=== PATIENT | female | born 1995 | race Caucasian/White ===

== ENCOUNTER 2022-05-19 07:56 | Outpatient (REF) | payer OTHER, SELFPAY ==
[2022-05-19 11:43] LABS: Hematocrit 41.8 % (37.0-47.0); Mean Corpuscular HGB Conc 33.5 g/dl (31.0-35.0); Mean Corpuscular Hemoglobin 27.9 pg (27.0-33.0); Mean Corpuscular Volume 83.4 fL (80.0-98.0); Mean Platelet Volume 10.3 fL (9.4-12.3); Platelet Count 332 X10*3/uL (160-400); Red Blood Count 5.01 X10*6/uL (4.20-5.50); Red Cell Distribution Width 12.7 % (11.0-16.0); White Blood Count 7.1 X10*3/uL (4.8-10.8)
[2022-05-19 12:07] LABS: Alanine Aminotransferase 16 U/L (0-31); Albumin Level 4.2 g/dL (3.5-5.0); Alkaline Phosphatase 58 U/L (39-117); Anion Gap 15 (12-20); Aspartate Amino Transferase 14 U/L (5-31); Bilirubin Total 0.5 mg/dL (0.0-1.0); Blood Urea Nitrogen 12 mg/dL (9-16); Calcium 9.1 mg/dL (8.4-10.2); Carbon Dioxide 24 mmol/L (22-29); Chloride 107 mmol/L (96-108); Cholesterol 152 mg/dL; Estimated Glomerular Filt Rate > 60; Glucose Fasting 90 mg/dL (60-99); HDL Cholesterol 53 mg/dL; LDL Cholesterol Calculated 87 mg/dl; Potassium 4.2 mmol/L (3.3-5.1); Sodium 142 mmol/L (135-145); Total Protein 6.9 g/dL (6.5-8.0); Triglycerides 63 mg/dL
[2022-05-19 12:30] LABS: TSH reflex Free T4 2.08 uIU/mL (0.32-4.0)
== END 2022-05-19 07:57 | disposition home or self-care (01) ==
LOC: HO.HMGCLDS 07:56
PROVIDERS: PCP Hospitalist; Visit Provider Hospitalist
DX: Z00.00 Encounter for general adult medical examination without abnormal findings (principal)
CPT/HCPCS: 36415; 80053; 80061; 84443; 85027

== ENCOUNTER 2022-06-11 08:52 | Outpatient (REF) | payer OTHER, SELFPAY ==
[2022-06-14 15:31] LABS: TS Negative Control Passed; TS Panel A 0; TS Panel B 0; TS Positive Control Passed; TSpotTB Negative (Negative)
== END 2022-06-11 08:53 | disposition home or self-care (01) ==
LOC: HO.WFDLDS 08:52
PROVIDERS: Visit Provider Hospitalist
DX: Z02.0 Encounter for examination for admission to educational institution (principal)
CPT/HCPCS: 36415; 86481; 86735; 86762; 86765; 86787

== ENCOUNTER 2023-02-18 15:54 | Outpatient (AMB) | payer BC, SELFPAY ==
[2023-02-18 16:00] VITALS: BP 122/68; PULSE 97; RESP 12; TEMP 36.8; O2SAT 99; BMI 29.4
--- NOTE | 2023-02-18 16:00 | A.OFFPC_ITS ---
Vital Signs 02/18/23 16:00 Height 5 ft 4 in Weight 171 lb 8 oz BMI 29.4 BP 122/68 Blood Pressure Location Rt brachial Position Sitting Respiration 12 Pulse 97 Pulse Source Pulse Oximeter Temp 98.2 F Temp Source Temporal Artery Scan Pulse Oximetry (%) 99 Oxygen Delivery Method Room Air Intake Visit Reasons: headaches Intake Note: Patient states that she was weed wacking and states that a rock flew deep in her nose and hasnt seen it since. Patient states it went up her nose 4 days ago. Benny soria states since then shes had a migraine for about 5 days. Patient would like a refill on the sumatriptan and ibuprofen. Patient would like a CAT scan done to see if anything is going on. Poiser Required: No Accompanied by: Self / Same As Patient Allergies No Known Allergies Allergy (Verified 02/18/23 16:25) Medication List - Last Reconciled 02/18/23 by Rowena Song CNP ibuprofen 600 mg PO Q8H PRN sumatriptan succinate take 1 tab at onset of headache; if no relief may repeat 1 tab after at least 2 hrs; max = 4 tabs/24 hr PO Tobacco use date assessed: 10/30/22 Dental Screening Dental Screen Date: 02/18/23 Did you have a dental visit in the last 12 months?: Yes Did you have a dental problem in the last 6 months where you did not have access to dental care?: No Was dental information given to patient?: Patient has dentist HPI HPI Comments History of Present Illness Details 27-year-old female presents with complaints of headache. She reports history of headache which worsened after a rock went into her left nostril while whacking 4 days ago. The pain is usually localized around the middle of her head. She describes the pain as throbbing and refractory to ibuprofen and Excedrin. No dizziness or visual disturbances. No nausea or vomiting. She was evaluated for headache in October 2022 and was prescribed sumatriptan. Visual acuity test was normal. She was referred to Ophthalmology. She states she never followed up with opthlamology because she was busy with school. 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 Allen Bello, Jennifer Encarnacion, Daniel Martin and colleagues, with an educational bessie from [employer]. Review of Systems Const Details: Const Denies chills, Denies fatigue, Denies fever(s), Reports headache(s) and Denies weakness ENT Reports as per HPI Card Denies chest pain, Denies lightheadedness, Denies dyspnea and Denies other (Palpitations) Resp Denies cough, Denies dyspnea, Denies wheezing and Denies other ( shortness of breath) GI Denies abdominal pain, Denies melena, Denies hematochezia, Denies change in bowel habits, Denies dyspepsia and Denies nausea Denies hematuria and Denies dysuria Musc Denies abnormal gait, Denies myalgias, Denies arthralgias, Denies numbness and Denies tingling Skin/Breast Denies rash, Denies unusual bruising and Denies wounds Neuro Denies abnormal gait, Denies dizziness, Reports headache(s), Denies memory loss, Denies numbness, Denies Sensory deficit (Neuro), Denies tingling and Denies weakness Psych Denies anxiety and Denies depression Endo Denies fatigue Aller/Immun Denies wheezing Physical exam (Primary Care) Vital Signs: Last Vital Signs Temp 98.2 F 02/18/23 16:00 Pulse 97 02/18/23 16:00 Resp 12 02/18/23 16:00 BP 122/68 02/18/23 16:00 Pulse Ox 99 02/18/23 16:00 Oxygen Delivery Method Room Air 02/18/23 16:00 BMI result Body Mass Index 29.4 Tobacco/Smoking Status: Tobacco use Status Tobacco use date assessed 10/30/22 02/18/23 16:13 Patient Tobacco Use Status Never used Tobacco 02/18/23 16:13 e-Cigarette/Vaping Use Never Used 02/18/23 16:13 Thrive Assessment: Date of Thrive Assessment Date Thrive assessed 06/11/22 02/18/23 16:13 Const Other: General: no acute distress and well developed Nutritional Appearance: well nourished Orientation/consciousness: patient oriented x3 HENMT Head is normocephalic Bilateral ear canal and TM are normal Nasal turbinates and oropharynx are pink and moist Sinuses are nontender with palpation No auricular or cervical lymphadenopathy Eyes General: appearance normal, both eyes and all related structures Pupils: Equal, round and reactive pupils present EOM: EOMs intact bilaterally Resp Effort & Inspection: normal respiratory effort Auscultation: clear to auscultation bilaterally Cardio Rate: regular rate Rhythm: regular rhythm Heart sounds: S1 normal heart sound present, S2 normal heart sound present, no gallops, no murmurs and no rubs GI Palpation (GI): No Abdominal aortic bruit present, Soft to palpation, nontender, No hepatosplenomegaly present and No Rebound tenderness present Auscultation: normal bowel sounds General: Yes no CVA tenderness Back/Spine/Pelvis Back: no CVA tenderness Cervical Spine: cervical ROM normal and No Cervical spine tenderness Thoracic/Lumbar Spine: thoraco-lumbar ROM normal, No pain with thoraco-lumbar ROM, No thoracic spinal tenderness and No lumbar spinal tenderness Extrem General: Yes normal to inspection, No edema and No calf tenderness Skin General: warm and dry. Normal skin color. Normal skin turgor Lesions: no lesions Rashes: no rashes Trauma: no lacerations or abrasions Wounds: no wounds Nails: normal Neuro General: patient oriented x3, gait normal and no focal neuro deficit Cranial nerves: Yes Equal, round and reactive pupils present Cognition (Neuro): normal cognition Gait exam (Neuro): Normal gait present Motor exam (neuro): 5/5 motor strength present throughout Sensory Exam: No Sensory deficit (Neuro) Psych Affect: normal affect Assessment and Plan Assessment & Plan (1) Headache: Code(s): R51.9 - Headache, unspecified Plan: Likely migraines or tension headaches Magnesium oxide and riboflavin as prescribed Labs ordered Adequate hydration and routine exercise encouraged Referred to neurology Follow-up with PCP in 2 months for complete physical exam return sooner with worsening or new symptoms Verbalized understanding and agreed with treatment plan. Orders: Orders Complete Blood Count no Diff Today R51.9 - Headache, unspecified Basic Metabolic Panel Today R51.9 - Headache, unspecified Referrals Neurology Referral R51.9 - Headache, unspecified Medications: New magnesium oxide 400 mg PO DAILY 30 days 30 caps 0RF riboflavin (vitamin B2) 400 mg PO DAILY 30 days 30 tabs 0RF Discontinued sumatriptan succinate Discontinued Reason: Patient no longer taking take 1 tab at onset of headache; if no relief may repeat 1 tab after at least 2 hrs; max = 4 tabs/24 hr PO 30 tabs 1RF Coding Level of Care Code Est Pt Level 3 (25609) Diagnoses Headache R51.9 Time Spent (min) 25
== END 2023-02-18 16:47 | disposition home or self-care (01) ==
PROVIDERS: PCP Hospitalist; Visit Provider Nurse Practitioner Family
DX: R51.9 Headache, unspecified (principal)
CPT/HCPCS: 99213

== ENCOUNTER 2023-11-26 10:30 | Outpatient (AMB) | payer BC, SELFPAY ==
--- NOTE | 2023-11-26 10:34 | MHC.PC.OV ---
Vital Signs 11/26/23 10:35 Height 5 ft 4 in Weight 177 lb 4 oz BMI 30.4 BP 114/74 Blood Pressure Location Rt brachial Position Sitting Respiration 13 Pulse 89 Pulse Source Pulse Oximeter Temp 98 F Temp Source Temporal Artery Scan Pulse Oximetry (%) 99 Oxygen Delivery Method Room Air Intake Visit Reasons: f/u heart issues Emergency Room Orderly Required: No Accompanied by: Self / Same As Patient Allergies No Known Allergies Allergy (Verified 11/26/23 10:42) Tobacco use date assessed: 11/26/23 Dental Screening Dental Screen Date: 11/26/23 Did you have a dental visit in the last 12 months?: Yes Did you have a dental problem in the last 6 months where you did not have access to dental care?: No Was dental information given to patient?: Patient has dentist HPI HPI Comments History of Present Illness Details 28-year-old female presents with complaints of intermittent chest pain shooting, burning, and heavy chest pain to her sternum and left and right chest for the past 1 week. She also reports intermittent palpitations for the past 1 month. No aggravating or alleviating factors. No jaw, neck, or jaw pain. She was evaluated a [facility] 3 days ago; xray, EKG, and labs were unrevealing. She notes that she was advised to f/u with cardiology for monitory with a holter monitor. [facility] ED record on 11/23/2023 reviewed. Chest x-ray and EKG were unremarkable. D-dimer was negative. CBC and BMP was normal. Physical exam was normal. She notes that she has been consuming lots of caffeine, including energy drinks and coffee for the past 6 years. She has been consuming between 500-700mg of caffeine daily but recently reduced to 200 mg daily. She is currently experiencing shooting pain and heaviness to her sternum. She reports associated shortness of breath and fatigue. She notes that I am not anxious more than usual. However, she declines MILLER-7 and PHQ-9 screening. [facility] Medical History (Updated 11/26/23 @ 11:30 by Rowena Song CNP) No pertinent past medical history Surgical History (Updated 02/18/23 @ 16:19 by MARCUS Bach) No pertinent past surgical history Family History (Updated 11/26/23 @ 10:45 by MARCUS Bach) Mother No family history of mental disorder Hypothyroidism Father No family history of mental disorder Diabetes Maternal Grandmother Kenmare's disease Paternal Grandmother Alzheimer disease Maternal Grandfather Liver cancer Paternal Grandfather Cancer Social History Household Members: Family Both parents involved: No Caregiver staying overnight: No Housing: House (parents) Are you a primary manager urgent care to a significant other at home: No Do you presently have visiting nurse or other home services: No 75 years or older and lives alone: No Alcohol intake: current Alcohol intake frequency: holidays/special occasions only Alcohol type: other Patient Tobacco Use Status: Never used Tobacco e-Cigarette/Vaping Use: Never Used service: No Current occupational status: employed Current occupation: [employer] Cognitive needs: No Hearing needs: No Vision needs: No Questionnaire Thrive Questionnaire Date Thrive assessed: 06/11/22 MILLER-7 AMB Questionnaire MILLER-7 Date MILLER - 7 assessed: 06/11/22 Source: Developed by Drs. Allen Bello, Jennifer Encarnacion, Daniel Martin and colleagues, with an educational bessie from [employer]. Review of Systems Const Details: Const Denies chills, Reports fatigue, Denies fever(s), Denies headache(s) and Denies weakness ENT Denies dizziness and Denies headache(s) Card Reports chest pain, Denies lightheadedness, Denies dyspnea and Denies other (Palpitations) Resp Reports SOB, Denies cough, and Denies wheezing GI Denies abdominal pain, Denies melena, Denies hematochezia, Denies change in bowel habits, Denies dyspepsia and Denies nausea Denies hematuria and Denies dysuria Musc Denies abnormal gait, Denies myalgias, Denies arthralgias, Denies numbness and Denies tingling Skin/Breast Denies rash, Denies unusual bruising and Denies wounds Neuro Denies abnormal gait, Denies dizziness, Denies headache(s), Denies memory loss, Denies numbness, Denies Sensory deficit (Neuro), Denies tingling and Denies weakness Psych Denies anxiety, Denies depression, Denies memory loss Endo Denies cold intolerance, Reports fatigue, Denies heat intolerance, Denies polydipsia and Denies polyuria Aller/Immun Denies wheezing Physical exam (Primary Care) Vital Signs: Last Vital Signs Temp 98 F 11/26/23 10:35 Pulse 89 11/26/23 10:35 Resp 13 11/26/23 10:35 BP 114/74 11/26/23 10:35 Pulse Ox 99 11/26/23 10:35 Oxygen Delivery Method Room Air 11/26/23 10:35 BMI result Body Mass Index 30.4 Tobacco/Smoking Status: Tobacco use Status Tobacco use date assessed 11/26/23 11/26/23 10:45 Patient Tobacco Use Status Never used Tobacco 11/26/23 10:46 e-Cigarette/Vaping Use Never Used 11/26/23 10:46 Thrive Assessment: Date of Thrive Assessment Date Thrive assessed 06/11/22 11/26/23 10:35 Const Other: General: no acute distress and well developed Nutritional Appearance: well nourished Orientation/consciousness: patient oriented x3 HENMT Head: Yes normocephalic and Yes atraumatic Eyes General: appearance normal, both eyes and all related structures Pupils: Equal, round and reactive pupils present EOM: EOMs intact bilaterally Resp Effort & Inspection: normal respiratory effort Auscultation: clear to auscultation bilaterally Cardio Rate: regular rate Rhythm: regular rhythm Heart sounds: S1 normal heart sound present, S2 normal heart sound present, no gallops, no murmurs and no rubs GI Palpation (GI): No Abdominal aortic bruit present, Soft to palpation, nontender, No hepatosplenomegaly present and No Rebound tenderness present Auscultation: normal bowel sounds General: Yes no CVA tenderness Back/Spine/Pelvis Back: no CVA tenderness Cervical Spine: cervical ROM normal and No Cervical spine tenderness Thoracic/Lumbar Spine: thoraco-lumbar ROM normal, No pain with thoraco-lumbar ROM, No thoracic spinal tenderness and No lumbar spinal tenderness Extrem General: Yes normal to inspection, No edema and No calf tenderness Skin General: warm and dry. Normal skin color. Normal skin turgor Neuro General: patient oriented x3, gait normal and no focal neuro deficit Cranial nerves: Yes Equal, round and reactive pupils present Cognition (Neuro): normal cognition Gait exam (Neuro): Normal gait present Sensory Exam: No Sensory deficit (Neuro) Psych Appearance: grossly normal Affect: normal affect Attitude: cooperative Thought process: Normal thought process present Office Procedures EKG [id number], Complete EKG [id number], Complete Assessment and Plan Assessment & Plan (1) Intermittent chest pain: Code(s): R07.9 - Chest pain, unspecified Plan: Reports intermittent localized chest pain that is shooting, burning, and heavy in nature for the past 1 week. Associated fatigue and difficulty breathing Card[facility] at [facility] was unremarkable Normal physical exam, lung sounds clear bilaterally, heart regular rate and rhythm, EKG with normal sinus rhythm Advised to significantly reduce or avoid caffeine intake Will trial Prilosec daily x2 weeks Referred to [facility] cardiology Encouraged to schedule an appointment to establish with a PCP Follow-up with worsening or new symptoms Verbalized understanding and agreed with treatment plan Orders: Orders AMB EKG-In Office Today R07.9 - Chest pain, unspecified Referrals Cardiology Referral R07.9 - Chest pain, unspecified Medications: New omeprazole 20 mg PO DAILY 14 days 14 caps 0RF Coding Level of Care Code Est Pt Level 4 (35768) Diagnoses Intermittent chest pain R07.9 CPT Codes EKG - CPT: 05757-[id number], Complete ([id number]) EKG - CPT: 02195-[id number], Complete ([id number])
[2023-11-26 10:35] VITALS: BP 114/74; PULSE 89; RESP 13; TEMP 36.6; O2SAT 99; BMI 30.4
== END 2023-11-26 12:33 | disposition home or self-care (01) ==
PROVIDERS: PCP Hospitalist; Visit Provider Nurse Practitioner Family
DX: R07.9 Chest pain, unspecified (principal)
CPT/HCPCS: 93000; 99214

== ENCOUNTER 2023-12-13 14:32 | Outpatient (AMB) | payer BC, SELFPAY ==
[2023-12-13 14:36] VITALS: BP 120/68; PULSE 85; O2SAT 98; BMI 29.1
--- NOTE | 2023-12-13 14:36 | MHC.OFFVIS ---
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 She states that she was getting some chest pain in the substernal area that radiated somewhat from one side to another and then went below her right ribs. No specific provoking factors and can happen any time. In fact, a lot of occasions she was feeling better with activity and symptoms more so at rest. Some random shortness of breath type symptoms. Again not exertional. Sensations of heart fluttering at different times. No previous cardiac history. Fairly active with no limitations. [facility] Medical History No pertinent past medical history Surgical History No pertinent past surgical history Family History (Updated 11/26/23 @ 10:45 by MARCUS Bach) Mother No family history of mental disorder Hypothyroidism Father No family history of mental disorder Diabetes Maternal Grandmother Dodge's disease Paternal Grandmother Alzheimer disease Maternal Grandfather Liver cancer Paternal Grandfather Cancer Social History (Updated 11/26/23 @ 10:46 by MARCUS Bach) Household Members: Family Both parents involved: No Caregiver staying overnight: No Housing: House Are you a primary patient care director to a significant other at home: No Do you presently have visiting nurse or other home services: No 75 years or older and lives alone: No Alcohol intake: current Alcohol intake frequency: holidays/special occasions only Alcohol type: other Patient Tobacco Use Status: Never used Tobacco e-Cigarette/Vaping Use: Never Used service: No Current occupational status: employed 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 Cognitive needs: No Hearing needs: No Vision needs: No Review of Systems Const Denies weakness ENT Denies dizziness Card Denies chest pain, Denies chest pain with activity, Denies syncope, Denies rapid heart rate, Denies pedal edema, Denies edema, Denies leg edema, Denies lightheadedness, Denies palpitations, Denies dyspnea, Denies dyspnea on exertion and Denies orthopnea Resp Denies cough, Denies dyspnea and Denies dyspnea on exertion GI Denies hematochezia and Denies change in stool character Musc Denies abnormal gait, Denies muscle cramps, Denies muscle weakness, Denies numbness, Denies radiating pain into limb and Denies tingling Neuro Denies abnormal gait, Denies dizziness, Denies syncope, Denies numbness, Denies tingling and Denies weakness Endo Denies palpitations Physical Exam Vital Signs: Last Vital Signs Pulse 85 12/13/23 14:36 BP 120/68 12/13/23 14:36 Pulse Ox 98 12/13/23 14:36 Oxygen Delivery Method Room Air 12/13/23 14:36 BMI result Body Mass Index 29.1 Const General: comfortable and no acute distress Orientation/consciousness: patient oriented x3 HEENT Other: Unremarkable Head: Yes normal to inspection Neck Neck: Yes normal visual inspection Chest Chest palpation & inspection: normal inspection of the chest Resp Auscultation: clear to auscultation bilaterally Cardio Palpation: normal PMI Heart sounds: S1 normal heart sound present, S2 normal heart sound present, no gallops, no murmurs and no rubs GI Palpation (GI): Soft to palpation Back/Spine/Pelvis Other: unremarkable Skin General skin exam: no rashes or lesions noted Neuro General: patient oriented x3 Extrem General: Yes normal to inspection Psych Mental Status: mental status grossly normal Office Procedures EKG Details: EKG with sinus rhythm at 85/Min; rightward axis; no significant ST-T changes and otherwise unremarkable. [place] [id number], Complete Assessment & Plan Assessment & Plan (1) Intermittent chest pain: Code(s): R07.9 - Chest pain, unspecified Category: Medical Plan Various complaints including chest pain, shortness of breath, fluttering. Plan echocardiogram for assessing any structural abnormalities. Otherwise, mainly reassurance only. Orders: Orders CA echo transthoracic complete Today R07.9 - Chest pain, unspecified Coding Level of Care Code New Pt Level 3 (13595) Diagnoses Intermittent chest pain R07.9 CPT Codes EKG - CPT: 93314-[id number], Complete ([id number])
== END 2023-12-13 15:51 | disposition home or self-care (01) ==
PROVIDERS: PCP Hospitalist; Visit Provider Internal Medicine
DX: R07.9 Chest pain, unspecified (principal)
CPT/HCPCS: 93010; 99203

== ENCOUNTER → 2023-12-13 14:32 | Outpatient (BNVA) | payer BC, SELFPAY | PROVIDERS: PCP Hospitalist; Visit Provider Internal Medicine | DX: R07.9 Chest pain, unspecified (principal); R06.02 Shortness of breath | CPT/HCPCS: 93005 ==